=== PATIENT | male | born 1945 | race Caucasian/White ===

== ENCOUNTER → 2019-03-09 11:29 | Outpatient (CLI) | payer MEDICARE, SELFPAY ==
[2016-01-26 18:14] VITALS: BMI 33.1
== END ==
PROVIDERS: Family Provider Family Medicine; PCP Family Medicine; Referring Provider Dermatology; Visit Provider Dermatology
DX: L02.11 Cutaneous abscess of neck (principal)
CPT/HCPCS: 87070; 87077; 87186; 87205

== ENCOUNTER 2020-05-29 14:56 | Outpatient (RCR) | payer MEDICARE, SELFPAY ==
[2020-05-29] MEDS: COVID-19 VACC, MRNA(PFIZER)/PF 30 MCG/0.3 ML SYRINGE IM (08:27)
[2020-06-19] MEDS: COVID-19 VACC, MRNA(PFIZER)/PF 30 MCG/0.3 ML SYRINGE IM (08:12)
== END 2020-05-29 23:59 ==
LOC: IMMUN 14:56
PROVIDERS: PCP Family Medicine; Visit Provider Family Medicine
DX: Z23 Encounter for immunization (principal)
CPT/HCPCS: 0001A; 0002A; 91300